=== PATIENT | female | born 1950 | race Caucasian/White ===

== ENCOUNTER → 2016-09-21 | Day surgery (SDC) | payer OTHER ==
[~2016-09-21] MED LIST: ASPIR-LOW81 MG PO; METOPROLOL SUCC25 MG PO; ZESTRIL10 MG PO
== END | disposition home or self-care (01) ==
LOC: OR 06:47
PROVIDERS: Internal Medicine Gastroenterology
PROC: 0DBP8ZZ Excision of Rectum, Via Natural or Artificial Opening Endoscopic (ICD-10-PCS; 2016-09-21)
PROC: 0DBL8ZZ Excision of Transverse Colon, Via Natural or Artificial Opening Endoscopic (ICD-10-PCS; 2016-09-21)
PROC: 0DBN8ZZ Excision of Sigmoid Colon, Via Natural or Artificial Opening Endoscopic (ICD-10-PCS; 2016-09-21)
PROC: 0DBK8ZZ Excision of Ascending Colon, Via Natural or Artificial Opening Endoscopic (ICD-10-PCS; principal; 2016-09-21 09:30)
DX: Z12.11 Encounter for screening for malignant neoplasm of colon (principal); D12.2 Benign neoplasm of ascending colon; D12.3 Benign neoplasm of transverse colon; D12.5 Benign neoplasm of sigmoid colon; D12.8 Benign neoplasm of rectum; K57.30 Diverticulosis of large intestine without perforation or abscess without bleeding; K64.0 First degree hemorrhoids; I10 Essential (primary) hypertension; F17.200 Nicotine dependence, unspecified, uncomplicated; Z82.49 Family history of ischemic heart disease and other diseases of the circulatory system; Z79.82 Long term (current) use of aspirin; Z79.899 Other long term (current) drug therapy; Z98.42 Cataract extraction status, left eye
CPT/HCPCS: 36415; 80074; 82103; 82728; 83540; 83550; 86039; J2250; J7030

== ENCOUNTER → 2021-10-14 | Outpatient (CLI) | payer MEDICARE ==
[~2021-10-14] MED LIST changes: +LOPRESSOR 25 MG25 MG PO; +SODIUM CHLORIDE1 GM PO
== END ==
LOC: KOH-I 09-30 16:00
DX: K72.90 Hepatic failure, unspecified without coma (principal); K74.60 Unspecified cirrhosis of liver; R04.2 Hemoptysis; J90 Pleural effusion, not elsewhere classified
CPT/HCPCS: 71250

== ENCOUNTER → 2022-04-02 | Outpatient (CLI) | payer MEDICARE | LOC: EXRD 10:30 | DX: K74.60 Unspecified cirrhosis of liver (principal); K72.90 Hepatic failure, unspecified without coma; K80.20 Calculus of gallbladder without cholecystitis without obstruction; R18.8 Other ascites; J90 Pleural effusion, not elsewhere classified | CPT/HCPCS: 76705 ==